=== PATIENT | female | born 1995 | race Caucasian/White ===

== ENCOUNTER 2017-12-02 16:06 | Inpatient (IN) | payer OTHER ==
[2017-12-02] MEDS ORDERED: Sodium Chloride 0.9% 10 ML Syringe FLUSH PRN (16:27)
[2017-12-02] MEDS ORDERED: Nalbuphine 20 MG/1 ML Amp IVPUSH PRN (16:27)
[2017-12-02] MEDS ORDERED: Oxytocin/Lactated Ringers 10 UNIT/1,000 ML BAG IV SCH ×2 (16:30)
[2017-12-02] MEDS ORDERED: fentaNYL 100 MCG/2 ML SDV EPIDUR PRN (17:13)
[2017-12-02] MEDS ORDERED: ePHEDrine 50 MG/ML SDV IVPUSH PRN (17:13)
[2017-12-02] MEDS ORDERED: diphenhydrAMINE 50 MG/ML SDV IVPUSH PRN (17:13)
[2017-12-02] MEDS ORDERED: Bupivacaine/fentaNYL/NS 100 ML Bag EPIDUR SCH (17:15)
--- NOTE | 2017-12-02 17:31 | PCM.PREANE ---
Preanesthetic Assessment - Anesthesia/Transfusion/Family Hx Anesthesia History: Prior Anesthesia Without Reaction Family History of Anesthesia Reaction: No Transfusion History: No Prior Transfusion(s) - Review of Systems General: No Symptoms Pulmonary: No Symptoms Cardiovascular: No Symptoms Gastrointestinal: No Symptoms Neurological: No Symptoms Other: Reports: Easy Bruising - Physical Assessment Pulse: 78 O2 Sat by Pulse Oximetry: 99 Respiratory Rate: 16 Blood Pressure: 130/75 Height: 5 ft 5 in Weight: 910.813 kg ASA Class: 2 Mental Status: Alert & Oriented x3 Airway Class: Mallampati = 1 Dentition: Reports: Normal Dentition Thyro-Mental Finger Breadths: 3 Mouth Opening Finger Breadths: 3 ROM/Head Extension: Full Lungs: Clear to Auscultation, Normal Respiratory Effort Cardiovascular: Regular Rate, Regular Rhythm - Lab Values: Laboratory Last Values WBC 11.03 K/mm3 (3.98-10.04) H 12/02/17 16:41 RBC 3.82 M/mm3 (3.98-5.22) L 12/02/17 16:41 Hgb 10.7 gm/L (11.2-15.7) L 12/02/17 16:41 Hct 33.3 % (34.1-44.9) L 12/02/17 16:41 MCV 87.2 fl (79.4-94.8) 12/02/17 16:41 MCH 28.0 pg (25.6-32.2) 12/02/17 16:41 MCHC 32.1 g/dl (32.2-35.5) L 12/02/17 16:41 RDW Std Deviation 39.3 fL (36.4-46.3) 12/02/17 16:41 Plt Count 191 K/mm3 (182-369) 12/02/17 16:41 MPV 10.6 fl (9.4-12.3) 12/02/17 16:41 Neut % (Auto) 75.7 % (34.0-71.1) H 12/02/17 16:41 Lymph % (Auto) 17.8 % (19.3-51.7) L 12/02/17 16:41 Davis % (Auto) 4.8 % (4.7-12.5) 12/02/17 16:41 Eos % (Auto) 1.1 (0.7-5.8) 12/02/17 16:41 Baso % (Auto) 0.1 % (0.1-1.2) 12/02/17 16:41 Neut # (Auto) 8.36 K/mm3 (1.56-6.13) H 12/02/17 16:41 Lymph # (Auto) 1.96 K/mm3 (1.18-3.74) 12/02/17 16:41 Davis # (Auto) 0.53 K/mm3 (0.24-0.36) H 12/02/17 16:41 Eos # (Auto) 0.12 K/mm3 (0.04-0.36) 12/02/17 16:41 Baso # (Auto) 0.01 K/mm3 (0.01-0.08) 12/02/17 16:41 - Allergies Allergies/Adverse Reactions: Allergies Allergy/AdvReac Type Severity Reaction Status Date / Time No Known Allergies Allergy Verified 12/02/17 17:07 - Blood Blood Available: No - Acknowledgements Anesthesia Type Planned: Epidural Pt an Appropriate Candidate for the Planned Anesthesia: Yes Alternatives and Risks of Anesthesia Discussed w Pt/Guardian: Yes Pt/Guardian Understands and Agrees with Anesthesia Plan: Yes PreAnesthesia Questionnaire Cardiovascular History: Reports: None Respiratory History: Reports: None Gastrointestinal History: Reports: GERD (with preg) : 1 (40 weeks) Para: 0 Oncologic (Cancer) History: Reports: None - SUBSTANCE USE Smoking Status *Q: Never Smoker Tobacco Use Within Last Twelve Months: No Second Hand Smoke Exposure: No Days Per Week of Alcohol Use: 0 Recreational Drug Use History: No - HOME MEDS Home Medications: Home Meds PNV95/Ferrous Fumarate/FA [ Tablet] 1 tab PO DAILY 12/02/17 [History] - CURRENT (IN HOUSE) MEDS Current Meds: Current Medications Diphenhydramine HCl (Benadryl) 25 mg IVPUSH Q6H PRN PRN Reason: pruritis Ephedrine Sulfate (Ephedrine Sulfate) 5 mg IVPUSH ASDIRECTED PRN PRN Reason: Hypotension Fentanyl (Sublimaze) 100 mcg EPIDUR Q3H PRN PRN Reason: Pain Fentanyl/Bupivacaine HCl (Fentanyl/Bupivacaine/Ns 2 Mcg-0.125% 100 Ml) 100 ml EPIDUR ASDIRECTED ROSS Lactated Ringer's (Ringers, Lactated) 1,000 mls @ 100 mls/hr IV ASDIRECTED ROSS Oxytocin/Lactated Ringer's (Pitocin In Lr 10 Units/1,000 Ml) 10 unit in 1,000 mls @ 500 mls/hr IV .CONTINUOUS ROSS Oxytocin/Lactated Ringer's (Pitocin In Lr 10 Units/1,000 Ml) 10 unit in 1,000 mls @ 12 mls/hr IV TITRATE ROSS; Protocol Nalbuphine HCl (Nubain) 10 mg IVPUSH Q2H PRN PRN Reason: Pain (moderate 4-6) Sodium Chloride (Saline Flush) 10 ml FLUSH ASDIRECTED PRN PRN Reason: Keep Vein Open
[2017-12-02] MEDS: Lactated Ringers 1,000 ML IV SCH ×2 (17:42→19:09)
--- NOTE | 2017-12-02 21:45 | PCM.LDHP ---
L&D History of Present Illness - General Date of Service: 12/02/17 Admit Problem/Dx: Patient Status Order with Admit Dx/Problem 12/02/17 16:27 Patient Status [ADT] Routine Admission Diagnosis/Problem Admission Diagnosis/Problem Source of Information: Patient History Limitations: Reports: No Limitations - History of Present Illness Introduction:: 22 year old at 38w6d presents to clinic with painful uterine contractions that started last evening and got progressively stronger over the course of today. Called clinic and was advised to come in to be checked. 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: Oncologic (Cancer) History: Reports: None - Past Surgical History Other HEENT Surgeries/Procedures: [place] teeth and tubes Social & Family History - Family History Family Medical History: Noncontributory - Tobacco Use Smoking Status *Q: Never Smoker Second Hand Smoke Exposure: No - Caffeine Use Caffeine Use: Reports: Soda - Alcohol Use Days Per Week of Alcohol Use: 0 - Recreational Drug Use Recreational Drug Use: No H&P Review of Systems - Review of Systems: Review Of Systems: See Below General: Reports: No Symptoms HEENT: Reports: No Symptoms Pulmonary: Reports: No Symptoms Cardiovascular: Reports: No Symptoms Gastrointestinal: Reports: No Symptoms Genitourinary: Reports: No Symptoms Musculoskeletal: Reports: No Symptoms Skin: Reports: No Symptoms Psychiatric: Reports: No Symptoms Neurological: Reports: No Symptoms Hematologic/Lymphatic: Reports: No Symptoms Immunologic: Reports: No Symptoms L&D Exam - Exam Exam: See Below - Vital Signs Vital Signs: Last Vital Signs Temp 36.8 C 12/02/17 16:45 Pulse 78 12/02/17 17:31 Resp 16 12/02/17 17:31 BP 130/75 12/02/17 17:31 Pulse Ox 99 12/02/17 17:31 Weight: 94.347 kg - OB Specific Contraction Intensity: Moderate Movement: Active Heart Tones: Present Heart Tones per Min: 145 Heart Rate (FHR) Variability: Moderate (6-25 bmp) Presentation: Vertex - [place] Score Canada Score Cervix Position: Midposition [place] Score Consistency: Soft [place] Score Dilation: > 5 cm [place] Score 's Station: -2 - Exam General: Alert, Oriented HEENT: PERRLA, Conjunctiva Clear, EACs Clear, EOMI, Hearing Intact, Mucosa Moist & [place], Nares Patent, Normal Nasal Septum, Posterior Pharynx Clear, TMs Clear Neck: Supple, Trachea Midline Lungs: Clear to Auscultation, Normal Respiratory Effort Cardiovascular: Regular Rate, Regular Rhythm GI/Abdominal Exam: Normal Bowel Sounds, Soft, Non-Tender, No Organomegaly, No Distention, No Abnormal Bruit, No Mass, Pelvis Stable Rectal Exam: Normal Exam Genitourinary: Normal external exam, Normal bimanual exam, Normal speculum exam Back Exam: Normal Inspection, Full Range of Motion Extremities: Normal Inspection, Normal Range of Motion, Non-Tender, No Pedal Edema, Normal Capillary Refill Skin: Warm, Dry, Intact Neurological: Cranial Nerves Intact, Reflexes Equal Bilateral Psychiatric: Alert, Normal Affect, Normal Mood - Patient Data Lab Results Last 24 hrs: Laboratory Results - last 24 hr 12/02/17 12/02/17 Range/Units 16:41 16:41 WBC 11.03 H (3.98-10.04) K/mm3 RBC 3.82 L (3.98-5.22) M/mm3 Hgb 10.7 L (11.2-15.7) gm/L Hct 33.3 L (34.1-44.9) % MCV 87.2 (79.4-94.8) fl MCH 28.0 (25.6-32.2) pg MCHC 32.1 L (32.2-35.5) g/dl RDW Std Deviation 39.3 (36.4-46.3) fL Plt Count 191 (182-369) K/mm3 MPV 10.6 (9.4-12.3) fl Neut % (Auto) 75.7 H (34.0-71.1) % Lymph % (Auto) 17.8 L (19.3-51.7) % [place] % (Auto) 4.8 (4.7-12.5) % Eos % (Auto) 1.1 (0.7-5.8) Baso % (Auto) 0.1 (0.1-1.2) % Neut # (Auto) 8.36 H (1.56-6.13) K/mm3 Lymph # (Auto) 1.96 (1.18-3.74) K/mm3 [place] # (Auto) 0.53 H (0.24-0.36) K/mm3 Eos # (Auto) 0.12 (0.04-0.36) K/mm3 Baso # (Auto) 0.01 (0.01-0.08) K/mm3 Blood Type A POSITIVE Gel Antibody Screen Negative Result Diagrams: 12/02/17 16:41 Problem List Initiated/Reviewed/Updated: Yes Orders Last 24hrs: Active Orders 24 hr Category Date Time Status Patient Status [ADT] Routine ADT 12/02/17 16:27 Active Activity as Tolerated [RC] PFP Care 12/02/17 16:27 Active Communication Order [RC] ASDIRECTED Care 12/02/17 16:27 Active Heart Tones [RC] ASDIRECTED Care 12/02/17 16:27 Active Insert [place] Catheter [Insert Urinary Catheter] [OM.PC] Care 12/02/17 19:30 Ordered Q24H Notify Provider [RC] ASDIRECTED Care 12/02/17 17:13 Active Notify Provider [RC] PFP Care 12/02/17 16:27 Active Notify Provider [RC] PRN Care 12/02/17 16:27 Active PCEA Epidural [RC] ASDIRECTED Care 12/02/17 19:22 Active Peripheral IV Care [RC] . DIRECTED Care 12/02/17 16:27 Active Urinary Catheter Assessment [RC] ASDIRECTED Care 12/02/17 19:23 Active Vital Signs [RC] PER UNIT ROUTINE Care 12/02/17 16:27 Active Regular Diet [DIET] Diet 12/02/17 Lunch Active PATIENT RETYPE [BBK] Routine Lab 12/02/17 16:41 Results TYPE AND SCREEN [BBK] Routine Lab 12/02/17 16:41 Results Bupivacaine/fentaNYL/NS [fentaNYL/Bupivacaine/NS 2 MCG- Med 12/02/17 17:15 Active 0.125% 100 ML] 100 ml EPIDUR ASDIRECTED Lactated Ringers [Ringers, Lactated] 1,000 ml Med 12/02/17 16:30 Active IV ASDIRECTED Nalbuphine [Nubain] Med 12/02/17 16:27 Active 10 mg IVPUSH Q2H PRN Oxytocin/Lactated Ringers [Pitocin in LR 10 Units/1,000 Med 12/02/17 16:30 Active ML] 10 unit in 1,000 ml IV .CONTINUOUS Oxytocin/Lactated Ringers [Pitocin in LR 10 Units/1,000 Med 12/02/17 16:30 Active ML] 10 unit in 1,000 ml IV TITRATE Sodium Chloride 0.9% [Saline Flush] Med 12/02/17 16:27 Active 10 ml FLUSH ASDIRECTED PRN diphenhydrAMINE [Benadryl] Med 12/02/17 17:13 Active 25 mg IVPUSH Q6H PRN ePHEDrine [ePHEDrine Sulfate] Med 12/02/17 17:13 Active 5 mg IVPUSH ASDIRECTED PRN fentaNYL [Sublimaze] Med 12/02/17 17:13 Active 100 mcg EPIDUR Q3H PRN Electronic Heart Tones Ext w TOCO [WOMSER] Oth 12/02/17 16:27 Ordered Routine Electronic Heart Tones Internal [WOMSER] Per Unit Oth 12/02/17 16:27 Ordered Routine Peripheral IV Insertion Adult [OM.PC] Routine Oth 12/02/17 16:27 Ordered Resuscitation Status Routine Resus Stat 12/02/17 16:27 Ordered Medication Orders Diphenhydramine HCl (Benadryl) 25 mg IVPUSH Q6H PRN PRN Reason: pruritis Ephedrine Sulfate (Ephedrine Sulfate) 5 mg IVPUSH ASDIRECTED PRN PRN Reason: Hypotension Fentanyl (Sublimaze) 100 mcg EPIDUR Q3H PRN PRN Reason: Pain Last Admin: 12/02/17 17:53 Dose: 100 mcg Fentanyl/Bupivacaine HCl (Fentanyl/Bupivacaine/Ns 2 Mcg-0.125% 100 Ml) 100 ml EPIDUR ASDIRECTED [facility] Last Admin: 12/02/17 17:53 Dose: 100 ml Lactated Ringer's (Ringers, Lactated) 1,000 mls @ 100 mls/hr IV ASDIRECTED [facility] Last Admin: 12/02/17 19:09 Dose: 100 mls/hr Infusion: 12/02/17 19:09 Dose: 100 mls/hr Admin: 12/02/17 17:42 Dose: 100 mls/hr Oxytocin/Lactated Ringer's (Pitocin In Lr 10 Units/1,000 Ml) 10 unit in 1,000 mls @ 500 mls/hr IV .CONTINUOUS ROSS Oxytocin/Lactated Ringer's (Pitocin In Lr 10 Units/1,000 Ml) 10 unit in 1,000 mls @ 12 mls/hr IV TITRATE ROSS; Protocol Nalbuphine HCl (Nubain) 10 mg IVPUSH Q2H PRN PRN Reason: Pain (moderate 4-6) Sodium Chloride (Saline Flush) 10 ml FLUSH ASDIRECTED PRN PRN Reason: Keep Vein Open Assessment/Plan Comment:: Term labor. Desires epidural CBC Anticipate unless otherwise indicated
[2017-12-02] MEDS ORDERED: Bupivacaine 0.25% 10 ML SDV ONE (22:00)
[2017-12-03] MEDS ORDERED: Docusate Sodium 100 MG Cap PO PRN (00:14)
[2017-12-03] MEDS ORDERED: Benzocaine/Menthol 20%-0.5% Spray 56 GM Canister TOP PRN (00:14)
[2017-12-03] MEDS ORDERED: Witch Hazel Medicated Pads 100/Jar TOP PRN (00:14)
[2017-12-03] MEDS: Ibuprofen 600 MG Tab PO PRN ×3 (00:49→19:47)
--- NOTE | 2017-12-03 10:15 | PCM.SN ---
- Free Text/Narrative Note: Post Progress Note PPD # 1 Subjective: Doing well overall. Ambulating without difficulty. Lochia minimal. Voiding without difficulty. Tolerating regular diet without nausea or vomiting. Pain controlled with oral medications. Bottle feeding with minimal difficulty. Objective: Vitals: Vital Signs - 24 hr 12/02/17 12/02/17 12/03/17 16:45 17:31 04:00 Temperature [ 36.8 C 36.4 C Temporal] Pulse, 78 Peripheral Pulse, 69 91 Peripheral [ Brachial] Respiratory 16 16 16 Rate Blood Pressure 130/75 Blood Pressure 130/75 134/67 Upper Arm O2 Sat by Pulse 98 99 96 Oximetry Physical Exam General: Alert and oriented, no acute distress Lungs: Clear to auscultation bilaterally Heart: Regular rate and rhythm Abdomen: Soft, minimal appropriate tenderness, non-distended, fundus midline, nontender, and at the umbilicus Extremities: 1+ edema in bilateral lower extremities ASSESSMENT: 22-year-old female G 1 P 1 s/p vacuum-assisted vaginal delivery PPD #1 PLAN: Doing well Bottle feeding with minimal difficulty. Assist as needed Lochia minimal. Continue to monitor for appropriate lochia. Continue routine care Anticipate discharge home tomorrow Barron Grey, MS III I have seen and evaluated the patient with the student. I agree with the above note. Paddy Hylton MD 10:14 AM 12/03/2017
--- NOTE | 2017-12-04 08:46 | PCM.SN ---
- Free Text/Narrative Note: Post Progress Note PPD # 2 Subjective: No new complaints today. Doing well overall. Ambulating without difficulty. Lochia minimal. Voiding without difficulty. Tolerating regular diet without nausea or vomiting. Pain controlled with oral medications. Bottle feeding with minimal difficulty. Objective: Vitals: Vital Signs - 24 hr 12/03/17 12/03/17 12/03/17 09:03 13:49 19:51 Temperature 36.7 C 36.7 C 36.6 C Pulse, 94 88 79 Peripheral Respiratory 14 17 Rate Blood Pressure 127/76 139/73 121/75 O2 Sat by Pulse 96 94 L 97 Oximetry 12/04/17 03:54 Temperature 36.6 C Pulse, 79 Peripheral Respiratory 17 Rate Blood Pressure 124/73 O2 Sat by Pulse 95 Oximetry Physical Exam General: Alert and oriented, no acute distress Lungs: Clear to auscultation bilaterally Heart: Regular rate and rhythm Abdomen: Soft, minimal appropriate tenderness, non-distended, fundus midline, nontender, and below the umbilicus Extremities: No significant edema in lower extremities ASSESSMENT: 22-year-old female G 1 P 1 s/p vacuum-assisted vaginal delivery PPD #2 PLAN: Doing well with no complaints Bottle feeding with minimal difficulty. Assist as needed Lochia minimal. Continue to monitor for appropriate lochia. Continue routine care Anticipate discharge home today Barron Grey, III I have seen and evaluated the patient with the student. I agree with the above note. Paddy Hylton MD 8:45 AM 12/04/2017
--- NOTE | 2017-12-04 10:21 | PCM.DCSUM1 ---
Discharge Summary - Hospital Course Free Text/Narrative:: 22 year old at 38w6d presents to clinic with painful uterine contractions that started last evening and got progressively stronger over the course of today. Called clinic and was advised to come in to be checked. PNC with myself without complications HPI Initial Comments: 22 year old at 38w6d presents to clinic with painful uterine contractions that started last evening and got progressively stronger over the course of today. Called clinic and was advised to come in to be checked. PNC with myself without complications Brief History: 22 year old at 38w6d presents to clinic with painful uterine contractions that started last evening and got progressively stronger over the course of today. Called clinic and was advised to come in to be checked. PNC with myself without complications - Discharge Data Discharge Date: 12/04/17 Discharge Disposition: Home, Self-Care 01 Condition: Good - Discharge Diagnosis/Problem(s) (1) 39 weeks gestation of SNOMED Code(s): 48624479 ICD Code: Z3A.39 - 39 WEEKS GESTATION OF Status: Acute Current Visit: Yes (2) Vacuum extraction, delivered, current hospitalization SNOMED Code(s): 790321413 ICD Code: O66.5 - ATTEMPTED APPLICATION OF VACUUM EXTRACTOR AND FORCEPS Status: Acute Current Visit: Yes (3) Second degree laceration of perineum, delivered, current hospitalization SNOMED Code(s): 913786757 ICD Code: O70.1 - SECOND DEGREE PERINEAL LACERATION DURING DELIVERY Status : Acute Current Visit: Yes - Patient Summary/Data Operative Procedure(s) Performed: Vacuum-assisted vaginal delivery Complications: None Consults: None Hospital Course: Ashley Ricnon was admitted for spontaneous term labor. On admission her cervix was dilated to 7 cm. She was GBS negative. She was given an epidural for anesthesia. She had artificial rupture of membranes with clear fluid. She progressed to complete and began pushing. On 12/02/2017 she had a vacuum-assisted vaginal delivery of a live female infant at 2336. Apgars of 7 & 9. Weight of 3810 g (8 pounds 6.4 ounces). Her course was uneventful. Her pain was well controlled and she had minimal lochia. She was ambulating, tolerating a regular diet and voiding normally. She was bottle feeding. She was afebrile and her hematocrit was 33.3 on admission. She desired to be discharged home on the morning of PPD #2. Her blood type is a positive. - Patient Instructions Diet: Regular Diet as Tolerated Activity: As Tolerated Activity, Other: Nothing in the vagina for 6 weeks Driving: May Drive Today Showering/Bathing: May Shower Notify Provider of: Fever, Increased Pain, Swelling and Redness, Drainage, Nausea and/or Vomiting Other/Special Instructions: Please contact physician's office if having heavy vaginal bleeding enough to soak a pad in less than an hour for 2-3 hours. - Discharge Plan Prescriptions/Med Rec: Acetaminophen [Tylenol] 325 mg PO Q6H PRN #60 tablet PRN Reason: Pain Home Medications: Home Meds PNV95/Ferrous Fumarate/FA [ Tablet] 1 tab PO DAILY 12/02/17 [History] Acetaminophen [Tylenol] 325 mg PO Q6H PRN #60 tablet 12/04/17 [Rx] Benzocaine/Menthol [Dermoplast Pain Relief [place]] 1 spray TOP ASDIRECTED PRN canister 12/04/17 [Rx] Docusate Sodium [Colace] 100 mg PO BID PRN cap 12/04/17 [Rx] Ibuprofen [IJD: Ibuprofen] 600 mg PO Q6H PRN tablet 12/04/17 [Rx] Patient Handouts: Home Care Instructions for Mom, Vaginal Delivery, Care After , Care of a Perineal Tear - Discharge Summary/Plan Comment DC Time >30 min.: No - Patient Data Vitals - Most Recent: Last Vital Signs Temp 36.6 C 12/04/17 03:54 Pulse 79 12/04/17 03:54 Resp 17 12/04/17 03:54 BP 124/73 12/04/17 03:54 Pulse Ox 95 12/04/17 03:54 Weight - Most Recent: 94.347 kg Med Orders - Current: Current Medications Benzocaine/Menthol (Dermoplast Pain Relief [place]) 0 gm TOP ASDIRECTED PRN PRN Reason: Perineal Comfort Measure Last Admin: 12/03/17 00:50 Dose: 1 applic Docusate Sodium (Colace) 100 mg PO BID PRN PRN Reason: Constipation Ibuprofen (Motrin) 600 mg PO Q6H PRN PRN Reason: Mild pain or fever Last Admin: 12/03/17 19:47 Dose: 600 mg Witch Hemalatha (Tucks) 1 pad TOP ASDIRECTED PRN PRN Reason: Hemorrhoid pain Last Admin: 12/03/17 00:50 Dose: 1 applic Discontinued Medications Diphenhydramine HCl (Benadryl) 25 mg IVPUSH Q6H PRN PRN Reason: pruritis Ephedrine Sulfate (Ephedrine Sulfate) 5 mg IVPUSH ASDIRECTED PRN PRN Reason: Hypotension Fentanyl (Sublimaze) 100 mcg EPIDUR Q3H PRN PRN Reason: Pain Last Admin: 12/02/17 17:53 Dose: 100 mcg Fentanyl/Bupivacaine HCl (Fentanyl/Bupivacaine/Ns 2 Mcg-0.125% 100 Ml) 100 ml EPIDUR ASDIRECTED ROSS Last Admin: 12/02/17 17:53 Dose: 100 ml Lactated Ringer's (Ringers, Lactated) 1,000 mls @ 100 mls/hr IV ASDIRECTED ROSS Last Admin: 12/02/17 19:09 Dose: 100 mls/hr Oxytocin/Lactated Ringer's (Pitocin In Lr 10 Units/1,000 Ml) 10 unit in 1,000 mls @ 500 mls/hr IV .CONTINUOUS ROSS Last Admin: 12/02/17 23:39 Dose: 500 mls/hr Oxytocin/Lactated Ringer's (Pitocin In Lr 10 Units/1,000 Ml) 10 unit in 1,000 mls @ 12 mls/hr IV TITRATE ROSS; Protocol Nalbuphine HCl (Nubain) 10 mg IVPUSH Q2H PRN PRN Reason: Pain (moderate 4-6) Sodium Chloride (Saline Flush) 10 ml FLUSH ASDIRECTED PRN PRN Reason: Keep Vein Open
== END 2017-12-04 11:42 | disposition home or self-care (01) | DRG 775 ==
LOC: JD.OBCHECK 16:06 → JD.OB 16:09 → JD.OBCHECK 16:27 → MERGE 23:36 → OBSVTOIN 23:36 → JD.OB 23:46
PROVIDERS: ADMIT Obstetrics & Gynecology; ATTEND Obstetrics & Gynecology
PROC: 10D07Z6 Extraction of Products of Conception, Vacuum, Via Natural or Artificial Opening (ICD-10-PCS; principal; 2017-12-02)
PROC: 0KQM0ZZ Repair Perineum Muscle, Open Approach (ICD-10-PCS; 2017-12-02)
PROC: 10907ZC Drainage of Amniotic Fluid, Therapeutic from Products of Conception, Via Natural or Artificial Opening (ICD-10-PCS; 2017-12-02)
PROC: 00HU33Z Insertion of Infusion Device into Spinal Canal, Percutaneous Approach (ICD-10-PCS; 2017-12-02)
PROC: 3E0R3BZ Introduction of Anesthetic Agent into Spinal Canal, Percutaneous Approach (ICD-10-PCS; 2017-12-02)
DX: O69.81X0 Labor and delivery complicated by cord around neck, without compression, not applicable or unspecified (principal); Z3A.38 38 weeks gestation of pregnancy; Z37.0 Single live birth; O70.1 Second degree perineal laceration during delivery
CPT/HCPCS: 36415; 51701; 51702; 59025; 59300; 59409; 85025; 86850; 86900; 86901; A9270-GY; J2590; J3010; J7120

== ENCOUNTER 2020-01-23 18:49 | Inpatient (IN) | payer OTHER ==
[2020-01-23] MEDS ORDERED: Ondansetron 4 MG/2 ML SDV IVPUSH PRN (20:30)
[2020-01-23] MEDS ORDERED: Sodium Chloride 0.9% 10 ML Syringe FLUSH PRN (20:30)
[2020-01-23] MEDS ORDERED: Nalbuphine 10 MG/ML Syringe IVPUSH PRN (20:30)
[2020-01-23] MEDS ORDERED: Oxytocin/Lactated Ringers 10 UNIT/1,000 ML BAG IV SCH ×2 (20:30)
[2020-01-23] MEDS: Calcium Carbonate 500 MG Tab.Chew PO PRN (21:12)
[2020-01-23] MEDS: Lactated Ringers 1,000 ML IV SCH ×2 (21:13→22:34)
[2020-01-23] MEDS ORDERED: ePHEDrine 50 MG/ML SDV IVPUSH PRN (22:12)
[2020-01-23] MEDS ORDERED: Bupivacaine/fentaNYL/NS 100 ML Bag EPIDUR PRN (22:12)
[2020-01-23] MEDS ORDERED: fentaNYL 100 MCG/2 ML SDV EPIDUR PRN (22:12)
[2020-01-23] MEDS ORDERED: diphenhydrAMINE 50 MG/ML SDV IVPUSH PRN (22:12)
--- NOTE | 2020-01-23 22:43 | PCM.PREANE ---
Preanesthetic Assessment - Procedure Proposed Procedure: epidural - Anesthesia/Transfusion/Family Hx Anesthesia History: Prior Anesthesia Without Reaction Family History of Anesthesia Reaction: No Transfusion History: No Prior Transfusion(s) Type of Transfusion Reactions: Reports: Unknown - Review of Systems General: Fatigue Pulmonary: No Symptoms Cardiovascular: No Symptoms Gastrointestinal: Abdominal Pain (labor) Neurological: No Symptoms Other: Reports: None - Physical Assessment Vital Signs: Last Vital Signs Temp 37.2 C 01/23/20 20:30 Pulse 67 01/23/20 20:30 Resp 16 01/23/20 20:30 BP 138/82 01/23/20 20:30 Pulse Ox 97 01/23/20 20:30 Height: 1.65 m Weight: 92.986 kg ASA Class: 2 Mental Status: Alert & Oriented x3 Airway Class: Mallampati = 2 Dentition: Reports: Normal Dentition Thyro-Mental Finger Breadths: 3 Mouth Opening Finger Breadths: 3 ROM/Head Extension: Full Lungs: Clear to Auscultation, Normal Respiratory Effort Cardiovascular: Regular Rate, Regular Rhythm - Lab Values: Laboratory Last Values WBC 8.58 K/mm3 (3.98-10.04) 01/23/20 20:50 RBC 4.16 M/mm3 (3.98-5.22) 01/23/20 20:50 Hgb 11.6 gm/dl (11.2-15.7) 01/23/20 20:50 Hct 36.0 % (34.1-44.9) 01/23/20 20:50 MCV 86.5 fl (79.4-94.8) 01/23/20 20:50 MCH 27.9 pg (25.6-32.2) 01/23/20 20:50 MCHC 32.2 g/dl (32.2-35.5) 01/23/20 20:50 RDW Std Deviation 42.5 fL (36.4-46.3) 01/23/20 20:50 Plt Count 172 K/mm3 (182-369) L 01/23/20 20:50 MPV 11.9 fl (9.4-12.3) 01/23/20 20:50 Neut % (Auto) 64.8 % (34.0-71.1) 01/23/20 20:50 Lymph % (Auto) 30.1 % (19.3-51.7) 01/23/20 20:50 [place] % (Auto) 3.4 % (4.7-12.5) L 01/23/20 20:50 Eos % (Auto) 1.4 (0.7-5.8) 01/23/20 20:50 Baso % (Auto) 0.1 % (0.1-1.2) 01/23/20 20:50 Neut # (Auto) 5.56 K/mm3 (1.56-6.13) 01/23/20 20:50 Lymph # (Auto) 2.58 K/mm3 (1.18-3.74) 01/23/20 20:50 [place] # (Auto) 0.29 K/mm3 (0.24-0.36) 01/23/20 20:50 Eos # (Auto) 0.12 K/mm3 (0.04-0.36) 01/23/20 20:50 Baso # (Auto) 0.01 K/mm3 (0.01-0.08) 01/23/20 20:50 RPR Non-reactive (NONREACTIVE) 01/23/20 20:50 - Allergies Allergies/Adverse Reactions: Allergies Allergy/AdvReac Type Severity Reaction Status Date / Time No Known Allergies Allergy Verified 01/23/20 22:14 - Anesthesia Plan Pre-Op Medication Ordered: None - Acknowledgements Anesthesia Type Planned: Epidural Pt an Appropriate Candidate for the Planned Anesthesia: Yes Alternatives and Risks of Anesthesia Discussed w Pt/Guardian: Yes Pt/Guardian Understands and Agrees with Anesthesia Plan: Yes PreAnesthesia Questionnaire HEENT History: Reports: Impaired Vision, Other (See Below) Other HEENT History: Wears glasses Cardiovascular History: Reports: None Respiratory History: Reports: None Gastrointestinal History: Reports: GERD COMMERCIAL COUNSEL History: Reports: Oncologic (Cancer) History: Reports: None - Past Surgical History Head Surgeries/Procedures: Reports: None HEENT Surgical History: Reports: Other (See Below) Other HEENT Surgeries/Procedures: [place] teeth and tubes GI Surgical History: Reports: None - SUBSTANCE USE Smoking Status *Q: Never Smoker Tobacco Use Within Last Twelve Months: No Recreational Drug Use History: No - HOME MEDS Home Medications: Home Meds Pnv No.95/Ferrous Fum/Folic AC [ Tablet] 1 tab PO DAILY 12/02/17 [ History] - CURRENT (IN HOUSE) MEDS Current Meds: Current Medications Calcium Carbonate/Glycine (Tums) 1,000 mg PO Q2HR PRN PRN Reason: Indigestion Last Admin: 01/23/20 21:12 Dose: 1,000 mg Diphenhydramine HCl (Benadryl) 25 mg IVPUSH Q6H PRN PRN Reason: pruritis Ephedrine Sulfate (Ephedrine Sulfate) 5 mg IVPUSH ASDIRECTED PRN PRN Reason: Hypotension Fentanyl (Sublimaze) 100 mcg EPIDUR Q3H PRN PRN Reason: Pain Last Admin: 01/23/20 22:28 Dose: 100 mcg Fentanyl/Bupivacaine HCl (Fentanyl/Bupivacaine/Ns 2 Mcg-0.125% 100 Ml) 100 ml EPIDUR ASDIRECTED PRN PRN Reason: Pain Last Admin: 01/23/20 22:28 Dose: 100 ml Lactated Ringer's (Ringers, Lactated) 1,000 mls @ 100 mls/hr IV ASDIRECTED ROSS Last Admin: 01/23/20 22:34 Dose: 100 mls/hr Oxytocin/Lactated Ringer's (Pitocin In Lr 10 Units/1,000 Ml) 10 unit in 1,000 mls @ 12 mls/hr IV TITRATE ROSS; Protocol Oxytocin/Lactated Ringer's (Pitocin In Lr 10 Units/1,000 Ml) 10 unit in 1,000 mls @ 100 mls/hr IV .CONTINUOUS ROSS Nalbuphine HCl (Nubain) 10 mg IVPUSH Q2H PRN PRN Reason: Pain Ondansetron HCl (Zofran) 4 mg IVPUSH Q4H PRN PRN Reason: Nausea/Vomiting Sodium Chloride (Saline Flush) 10 ml FLUSH ASDIRECTED PRN PRN Reason: Keep Vein Open
[2020-01-24] MEDS ORDERED: Bupivacaine 0.25% 10 ML SDV ONE
[2020-01-24] MEDS: Calcium Carbonate 500 MG Tab.Chew PO PRN (00:36)
--- NOTE | 2020-01-24 01:30 | PCM.LDHP ---
L&D History of Present Illness - General Date of Service: 01/23/20 Admit Problem/Dx: Patient Status Order with Admit Dx/Problem 01/23/20 20:30 Patient Status [ADT] Routine Admission Diagnosis/Problem Admission Diagnosis/Problem - History of Present Illness Introduction:: 24 year old here for elective induction of labor at 40w6d. PNC with myself without significant complications. Pain Score: 7 - Related Data Allergies/Adverse Reactions: Allergies Allergy/AdvReac Type Severity Reaction Status Date / Time No Known Allergies Allergy Verified 01/23/20 22:14 Home Medications: Home Meds Pnv No.95/Ferrous Fum/Folic AC [ Tablet] 1 tab PO DAILY 12/02/17 [ History] Past Medical History HEENT History: Reports: Impaired Vision, Other (See Below) Other HEENT History: Wears glasses Cardiovascular History: Reports: None Respiratory History: Reports: None Gastrointestinal History: Reports: GERD [employer] History: Reports: Oncologic (Cancer) History: Reports: None - Past Surgical History Head Surgeries/Procedures: Reports: None HEENT Surgical History: Reports: Other (See Below) Other HEENT Surgeries/Procedures: [place] teeth and tubes GI Surgical History: Reports: None Social & Family History - Family History Family Medical History: Noncontributory - Tobacco Use Smoking Status *Q: Never Smoker - Caffeine Use Caffeine Use: Reports: Soda - Recreational Drug Use Recreational Drug Use: No H&P Review of Systems - Review of Systems: Review Of Systems: See Below General: Reports: No Symptoms HEENT: Reports: No Symptoms Pulmonary: Reports: No Symptoms Cardiovascular: Reports: No Symptoms Gastrointestinal: Reports: No Symptoms Genitourinary: Reports: No Symptoms Musculoskeletal: Reports: No Symptoms Skin: Reports: No Symptoms Psychiatric: Reports: No Symptoms Neurological: Reports: No Symptoms Hematologic/Lymphatic: Reports: No Symptoms Immunologic: Reports: No Symptoms L&D Exam - Exam Exam: See Below - Vital Signs Vital Signs: Last Vital Signs Temp 37.2 C 01/23/20 20:30 Pulse 67 01/23/20 20:30 Resp 16 01/23/20 20:30 BP 138/82 01/23/20 20:30 Pulse Ox 97 01/23/20 20:30 Weight: 92.986 kg - OB Specific Contraction Intensity: Moderate to Strong Movement: Active Heart Tones: Present Heart Rate (FHR) Variability: Moderate (6-25 bmp) Presentation: Vertex - [place] Score [place] Score Cervix Position: Posterior [place] Score Consistency: Soft [place] Score Effacement: >80% [place] Score Dilation: 3-4 cm [place] Score 's Station: -2 [place] Score Total: 8 - Exam General: Alert, Oriented HEENT: PERRLA, Conjunctiva Clear, EACs Clear, EOMI, Hearing Intact, Mucosa Moist & [place], Nares Patent, Normal Nasal Septum, Posterior Pharynx Clear, TMs Clear Neck: Supple, Trachea Midline Lungs: Clear to Auscultation, Normal Respiratory Effort Cardiovascular: Regular Rate, Regular Rhythm GI/Abdominal Exam: Normal Bowel Sounds, Soft, Non-Tender, No Organomegaly, No Distention, No Abnormal Bruit, No Mass, Pelvis Stable Genitourinary: Normal external exam, Normal bimanual exam, Normal speculum exam Back Exam: Normal Inspection, Full Range of Motion Extremities: Normal Inspection, Normal Range of Motion, Non-Tender, No Pedal Edema, Normal Capillary Refill Skin: Warm, Dry, Intact Neurological: Cranial Nerves Intact, Reflexes Equal Bilateral Psychiatric: Alert, Normal Affect, Normal Mood - Patient Data Lab Results Last 24 hrs: Laboratory Results - last 24 hr 01/23/20 01/23/20 Range/Units 20:50 20:50 WBC 8.58 (3.98-10.04) K/mm3 RBC 4.16 (3.98-5.22) M/mm3 Hgb 11.6 (11.2-15.7) gm/dl Hct 36.0 (34.1-44.9) % MCV 86.5 (79.4-94.8) fl MCH 27.9 (25.6-32.2) pg MCHC 32.2 (32.2-35.5) g/dl RDW Std Deviation 42.5 (36.4-46.3) fL Plt Count 172 L (182-369) K/mm3 MPV 11.9 (9.4-12.3) fl Neut % (Auto) 64.8 (34.0-71.1) % Lymph % (Auto) 30.1 (19.3-51.7) % [place] % (Auto) 3.4 L (4.7-12.5) % Eos % (Auto) 1.4 (0.7-5.8) Baso % (Auto) 0.1 (0.1-1.2) % Neut # (Auto) 5.56 (1.56-6.13) K/mm3 Lymph # (Auto) 2.58 (1.18-3.74) K/mm3 [place] # (Auto) 0.29 (0.24-0.36) K/mm3 Eos # (Auto) 0.12 (0.04-0.36) K/mm3 Baso # (Auto) 0.01 (0.01-0.08) K/mm3 RPR Non-reactive (NONREACTIVE) Result Diagrams: 01/23/20 20:50 Problem List Initiated/Reviewed/Updated: Yes Orders Last 24hrs: Active Orders 24 hr Category Date Time Status Patient Status [ADT] Routine ADT 01/23/20 20:30 Active Activity as Tolerated [RC] PFP Care 01/23/20 20:30 Active Communication Order [RC] ASDIRECTED Care 01/23/20 20:30 Active Communication Order [RC] ASDIRECTED Care 01/23/20 22:12 Active Cooling Warming Measures [RC] ASDIRECTED Care 01/23/20 22:12 Active Heart Tones [RC] ASDIRECTED Care 01/23/20 20:33 Active Non Stress Test [RC] PER UNIT ROUTINE Care 01/23/20 20:30 Active Notify Provider [RC] ASDIRECTED Care 01/23/20 22:12 Active Notify Provider [RC] ASDIRECTED Care 01/23/20 22:12 Active Notify Provider [RC] PFP Care 01/23/20 20:30 Active Notify Provider [RC] PRN Care 01/23/20 20:30 Active Oxygen Therapy [RC] ASDIRECTED Care 01/23/20 22:12 Active Peripheral IV Care [RC] . DIRECTED Care 01/23/20 20:33 Active Pulse Oximetry [RC] ASDIRECTED Care 01/23/20 22:12 Active Pump Management, Intrathecal [RC] ASDIRECTED Care 01/23/20 20:35 Active Vital Signs [RC] PER UNIT ROUTINE Care 01/23/20 20:30 Active Vital Signs [RC] Q1H Care 01/23/20 22:12 Active Regular Diet [DIET] Diet 01/23/20 Breakfast Active BLOOD BANK HOLD SPECIMEN [BBK] Stat Lab 01/23/20 20:50 Received Bupivacaine/fentaNYL/NS [fentaNYL/Bupivacaine/NS 2 MCG- Med 01/23/20 22:12 Active 0.125% 100 ML] 100 ml EPIDUR ASDIRECTED PRN Calcium Carbonate [Tums] Med 01/23/20 20:50 Active 1,000 mg PO Q2HR PRN Lactated Ringers [Ringers, Lactated] 1,000 ml Med 01/23/20 20:30 Active IV ASDIRECTED Nalbuphine [Nubain] Med 01/23/20 20:30 Active 10 mg IVPUSH Q2H PRN Ondansetron [Zofran] Med 01/23/20 20:30 Active 4 mg IVPUSH Q4H PRN Oxytocin/Lactated Ringers [Pitocin in LR 10 Units/1,000 Med 01/23/20 20:30 Active ML] 10 unit in 1,000 ml IV .CONTINUOUS Oxytocin/Lactated Ringers [Pitocin in LR 10 Units/1,000 Med 01/23/20 20:30 Active ML] 10 unit in 1,000 ml IV TITRATE Sodium Chloride 0.9% [Saline Flush] Med 01/23/20 20:30 Active 10 ml FLUSH ASDIRECTED PRN diphenhydrAMINE [Benadryl] Med 01/23/20 22:12 Active 25 mg IVPUSH Q6H PRN ePHEDrine [ePHEDrine sulfate] Med 01/23/20 22:12 Active 5 mg IVPUSH ASDIRECTED PRN fentaNYL [Sublimaze] Med 01/23/20 22:12 Active 100 mcg EPIDUR Q3H PRN Electronic Heart Tones Ext w TOCO [WOMSER] Oth 01/23/20 20:30 Ordered Routine Electronic Heart Tones Internal [WOMSER] Per Unit Oth 01/23/20 20:30 Ordered Routine Peripheral IV Insertion Adult [OM.PC] Routine Ot 01/23/20 20:30 Ordered Resuscitation Status Routine Resus Stat 01/23/20 20:30 Ordered Medication Orders Calcium Carbonate/Glycine (Tums) 1,000 mg PO Q2HR PRN PRN Reason: Indigestion Last Admin: 01/24/20 00:36 Dose: 1,000 mg Admin: 01/23/20 21:12 Dose: 1,000 mg Diphenhydramine HCl (Benadryl) 25 mg IVPUSH Q6H PRN PRN Reason: pruritis Ephedrine Sulfate (Ephedrine Sulfate) 5 mg IVPUSH ASDIRECTED PRN PRN Reason: Hypotension Fentanyl (Sublimaze) 100 mcg EPIDUR Q3H PRN PRN Reason: Pain Last Admin: 01/23/20 22:28 Dose: 100 mcg Fentanyl/Bupivacaine HCl (Fentanyl/Bupivacaine/Ns 2 Mcg-0.125% 100 Ml) 100 ml EPIDUR ASDIRECTED PRN PRN Reason: Pain Last Admin: 01/23/20 22:28 Dose: 100 ml Lactated Ringer's (Ringers, Lactated) 1,000 mls @ 100 mls/hr IV ASDIRECTED ROSS Last Admin: 01/23/20 22:34 Dose: 100 mls/hr Infusion: 01/23/20 22:34 Dose: 100 mls/hr Admin: 01/23/20 21:13 Dose: 100 mls/hr Oxytocin/Lactated Ringer's (Pitocin In Lr 10 Units/1,000 Ml) 10 unit in 1,000 mls @ 12 mls/hr IV TITRATE ROSS; Protocol Last Admin: 01/24/20 01:24 Dose: 2 munits/min, 12 mls/hr Oxytocin/Lactated Ringer's (Pitocin In Lr 10 Units/1,000 Ml) 10 unit in 1,000 mls @ 100 mls/hr IV .CONTINUOUS ROSS Nalbuphine HCl (Nubain) 10 mg IVPUSH Q2H PRN PRN Reason: Pain Ondansetron HCl (Zofran) 4 mg IVPUSH Q4H PRN PRN Reason: Nausea/Vomiting Sodium Chloride (Saline Flush) 10 ml FLUSH ASDIRECTED PRN PRN Reason: Keep Vein Open Assessment/Plan Comment:: Term induction. AROM clear fluid. Pitocin as needed. Anticipate unless otherwise indicated. Epidural per patient preference.
--- NOTE | 2020-01-24 02:49 | PCM.SN.2 ---
- Free Text/Narrative Note: Stage I - patient presented for IOL. AROM clear fluid. Progressed to complete with epidural anesthesia. Stage II - Pitocin started as contractions decreased significantly after complete. of viable male, weight 8#, APGARS 8/9 at 0233. Head delivered in controlled manner over intact perineum. Body and shoulders followed atraumatically. To maternal abdomen. Positive cry. Cord clamped and cut and baby taken to warmer. Stage III - of intact placenta. 3vc. Small 2nd degree laceration repaired with 3-0 vicryl. EBL 150.
[2020-01-24] MEDS ORDERED: Witch Hazel Medicated Pads 40/Jar TOP PRN (03:49)
[2020-01-24] MEDS ORDERED: Benzocaine/Menthol 20%-0.5% Spray 56 GM Canister TOP PRN (03:49)
[2020-01-24] MEDS ORDERED: Docusate Sodium 100 MG Cap PO PRN (03:49)
[2020-01-24] MEDS ORDERED: Hydrocortisone Acetate 25 MG Supp RECTAL PRN (03:49)
[2020-01-24] MEDS: Ibuprofen 600 MG Tab PO PRN ×3 (04:00→18:18)
--- NOTE | 2020-01-24 13:48 | PCM48HPAN ---
Post Anesthesia Note - EVALUATION WITHIN 48HRS OF ANESTHETIC Vital Signs in Normal Range: Yes Patient Participated in Evaluation: Yes Respiratory Function Stable: Yes Airway Patent: Yes Cardiovascular Function Stable: Yes Hydration Status Stable: Yes Pain Control Satisfactory: Yes Nausea and Vomiting Control Satisfactory: Yes Mental Status Recovered: Yes Vital Signs: Last Vital Signs Temp 36.7 C 01/24/20 08:03 Pulse 71 01/24/20 08:03 Resp 14 01/24/20 08:30 BP 113/77 01/24/20 08:03 Pulse Ox 95 01/24/20 08:03
[2020-01-25] MEDS ORDERED: Calcium Carbonate 500 MG Tab.Chew PO ONE (03:04)
--- NOTE | 2020-01-31 15:27 | PCM.DCSUM1 ---
Discharge Summary - Hospital Course Diagnosis: Stroke: No - Discharge Data Discharge Date: 01/24/20 Discharge Disposition: Home, Self-Care 01 Condition: Good - Referral to Home Health Primary Care Physician: Batool Silva MD - Patient Instructions Diet: Usual Diet as Tolerated Activity: As Tolerated Showering/Bathing: May Shower Notify Provider of: Fever, Increased Pain, Swelling and Redness, Drainage, Nausea and/or Vomiting - Discharge Plan *PRESCRIPTION DRUG MONITORING PROGRAM REVIEWED*: No *COPY OF PRESCRIPTION DRUG MONITORING REPORT IN PATIENT DILMA: No Home Medications: Home Meds Pnv No.95/Ferrous Fum/Folic AC [ Tablet] 1 tab PO DAILY 12/02/17 [ History] Patient Handouts: Care After Vaginal Delivery Referrals: Batool Silva MD [Primary Care Provider] - (Follow up in 2-6 weeks) - Discharge Summary/Plan Comment DC Time >30 min.: No - General Info Date of Service: 01/24/20 Functional Status: Reports: Pain Controlled - Review of Systems General: Reports: No Symptoms HEENT: Reports: No Symptoms Pulmonary: Reports: No Symptoms Cardiovascular: Reports: No Symptoms Gastrointestinal: Reports: No Symptoms Genitourinary: Reports: No Symptoms Musculoskeletal: Reports: No Symptoms Skin: Reports: No Symptoms Neurological: Reports: No Symptoms Psychiatric: Reports: No Symptoms - Patient Data Vitals - Most Recent: Last Vital Signs Temp 36.4 C 01/25/20 11:41 Pulse 63 01/25/20 11:42 Resp 14 01/25/20 11:41 BP 124/83 01/25/20 11:42 Pulse Ox 99 01/25/20 11:42 Weight - Most Recent: 92.986 kg Med Orders - Current: Current Medications Discontinued Medications Benzocaine/Menthol (Dermoplast Pain Relief Weare) 0 gm TOP ASDIRECTED PRN PRN Reason: Perineal Comfort Measure Last Admin: 01/24/20 03:59 Dose: 1 canister Bupivacaine HCl (Sensorcaine-Mpf 0.25%) 10 ml .ROUTE .STK-MED ONE Stop: 01/24/20 00:01 Calcium Carbonate/Glycine (Tums) 1,000 mg PO Q2HR PRN PRN Reason: Indigestion Last Admin: 01/24/20 00:36 Dose: 1,000 mg Calcium Carbonate/Glycine (Tums) 1,000 mg PO ONETIME ONE Stop: 01/25/20 03:05 Last Admin: 01/25/20 03:53 Dose: 1,000 mg Diphenhydramine HCl (Benadryl) 25 mg IVPUSH Q6H PRN PRN Reason: pruritis Docusate Sodium (Colace) 100 mg PO BID PRN PRN Reason: Constipation Ephedrine Sulfate (Ephedrine Sulfate) 5 mg IVPUSH ASDIRECTED PRN PRN Reason: Hypotension Fentanyl (Sublimaze) 100 mcg EPIDUR Q3H PRN PRN Reason: Pain Last Admin: 01/23/20 22:28 Dose: 100 mcg Fentanyl/Bupivacaine HCl (Fentanyl/Bupivacaine/Ns 2 Mcg-0.125% 100 Ml) 100 ml EPIDUR ASDIRECTED PRN PRN Reason: Pain Last Admin: 01/23/20 22:28 Dose: 100 ml Hydrocortisone Acetate (Anucort-Hc) 25 mg RECTAL BID PRN PRN Reason: Hemorrhoid pain Lactated Ringer's (Ringers, Lactated) 1,000 mls @ 100 mls/hr IV ASDIRECTED ROSS Last Admin: 01/23/20 22:34 Dose: 100 mls/hr Oxytocin/Lactated Ringer's (Pitocin In Lr 10 Units/1,000 Ml) 10 unit in 1,000 mls @ 12 mls/hr IV TITRATE ROSS; Protocol Last Titration: 01/24/20 02:20 Dose: 6 munits/min, 36 mls/hr Oxytocin/Lactated Ringer's (Pitocin In Lr 10 Units/1,000 Ml) 10 unit in 1,000 mls @ 100 mls/hr IV .CONTINUOUS ROSS Ibuprofen (Motrin) 600 mg PO Q6H PRN PRN Reason: Mild pain or fever Last Admin: 01/24/20 18:18 Dose: 600 mg Nalbuphine HCl (Nubain) 10 mg IVPUSH Q2H PRN PRN Reason: Pain Ondansetron HCl (Zofran) 4 mg IVPUSH Q4H PRN PRN Reason: Nausea/Vomiting Sodium Chloride (Saline Flush) 10 ml FLUSH ASDIRECTED PRN PRN Reason: Keep Vein Open Witch Hemalatha (Tucks) 1 pad TOP ASDIRECTED PRN PRN Reason: Pain Last Admin: 01/24/20 03:59 Dose: 1 container - Exam General: Reports: Alert, Oriented HEENT: Reports: Pupils Equal, Pupils Reactive, EOMI, Mucous Membr. Moist/[place] Neck: Reports: Supple Lungs: Reports: Normal Respiratory Effort GI/Abdominal Exam: Normal Bowel Sounds, Soft, Non-Tender, No Organomegaly, No Distention, No Abnormal Bruit, No Mass Rectal (Female) Exam: Normal Exam, Normal Rectal Tone Back Exam: Reports: Normal Inspection, Full Range of Motion Extremities: Normal Inspection, Normal Range of Motion, Non-Tender, No Pedal Edema, Normal Capillary Refill Skin: Reports: Warm, Dry, Intact Wound/Incisions: Reports: Healing Well Neurological: Reports: No New Focal Deficit Psy/Mental Status: Reports: Alert, Normal Affect, Normal Mood
== END 2020-01-25 11:57 | disposition home or self-care (01) | DRG 807 ==
LOC: JD.OB 18:49 → OBSVTOIN 01-24 02:33
PROVIDERS: ADMIT Obstetrics & Gynecology; ATTEND Obstetrics & Gynecology
PROC: 10E0XZZ Delivery of Products of Conception, External Approach (ICD-10-PCS; principal; 2020-01-24)
PROC: 0KQM0ZZ Repair Perineum Muscle, Open Approach (ICD-10-PCS; 2020-01-24)
PROC: 10907ZC Drainage of Amniotic Fluid, Therapeutic from Products of Conception, Via Natural or Artificial Opening (ICD-10-PCS; 2020-01-24)
PROC: 3E033VJ Introduction of Other Hormone into Peripheral Vein, Percutaneous Approach (ICD-10-PCS; 2020-01-24)
PROC: 3E0R3BZ Introduction of Anesthetic Agent into Spinal Canal, Percutaneous Approach (ICD-10-PCS; 2020-01-24)
DX: O48.0 Post-term pregnancy (principal); Z37.0 Single live birth; Z3A.40 40 weeks gestation of pregnancy; O99.62 Diseases of the digestive system complicating childbirth; K21.9 Gastro-esophageal reflux disease without esophagitis; O70.1 Second degree perineal laceration during delivery
CPT/HCPCS: 01967; 36415; 51702; 59025; 59409; 85025; 86592; A9270-GY; J2590; J3010; J3490; J7120